=== PATIENT | female | born 1990 | race Caucasian/White ===

== ENCOUNTER 2016-08-08 23:23 | Emergency (ER) | payer MEDICAID ==
[~2016-08-08] VITALS: Ht 167.6 cm; Wt 64.6 kg
[2016-08-09 00:50] LABS: ASPARTATE AMINO TRANSFERASE 10 U/L (15-37); BLOOD UREA NITROGEN 12 mg/dL (7-18)
[2016-08-09 01:43] VITALS: BP 105/68
== END 2016-08-09 02:01 | disposition home or self-care (01) ==
LOC: ED 23:59
DX: O20.0 Threatened abortion (principal)
CPT/HCPCS: 36415; 76801; 80053; 81003; 84702; 85025; 86901

== ENCOUNTER 2016-08-24 01:44 | Emergency (ER) | payer MEDICAID ==
[~2016-08-24] VITALS: Ht 167.6 cm; Wt 64.5 kg
[2016-08-24] MEDS ORDERED: ONDANSETRON 2MG/ML, 2ML ONE (02:47)
[2016-08-24] MEDS ORDERED: SODIUM CHLORIDE 0.9% 1,000ML IVBOLUS ONE ×2 (03:00)
[2016-08-24] MEDS ORDERED: ONDANSETRON 2MG/ML, 2ML IVPush ONE (03:00)
[2016-08-24 03:05] LABS: BLOOD UREA NITROGEN 12 mg/dL (7-18)
[2016-08-24 03:09] LABS: ASPARTATE AMINO TRANSFERASE 9 U/L (15-37)
[2016-08-24 04:53] VITALS: BP 102/54
== END 2016-08-24 05:11 | disposition home or self-care (01) ==
LOC: ED 02:44
DX: O26.891 Other specified pregnancy related conditions, first trimester (principal); R11.0 Nausea
CPT/HCPCS: 36415; 76801; 80053; 81003; 83690; 85025; 96361; 96374; 99285; J2405; J7030

== ENCOUNTER 2018-02-20 19:26 | Outpatient (CLI) | payer OTHER ==
[~2018-02-20] VITALS: Ht 167.6 cm; Wt 75.0 kg
[~2018-02-20 19:26] MED LIST: PREN1TAB10 PO
[2018-02-20 20:53] LABS: AMPHETAMINE SCREEN, URINE Negative (Negative); BARBITURATE SCREEN, URINE Negative (Negative); BENZODIAZEPINE SCREEN, URINE Negative (Negative); CANNABINOID SCREEN, URINE Positive (Negative); COCAINE SCREEN, URINE Negative (Negative); METHADONE SCREEN, URINE Negative (Negative); OPIATE SCREEN, URINE Negative (Negative)
== END 2018-02-20 21:35 | disposition home or self-care (01) ==
LOC: LDOP 19:26
PROVIDERS: ATTEND Obstetrics & Gynecology
DX: O62.9 Abnormality of forces of labor, unspecified (principal); Z3A.36 36 weeks gestation of pregnancy
CPT/HCPCS: 59025; 80307; 99211; G0463

== ENCOUNTER 2018-02-22 17:49 | Outpatient (CLI) | payer OTHER | END 2018-02-22 19:05 | disposition home or self-care (01) | LOC: LDOP 17:49 | PROVIDERS: ATTEND Obstetrics & Gynecology | DX: O42.913 Preterm premature rupture of membranes, unspecified as to length of time between rupture and onset of labor, third trimester (principal); Z3A.36 36 weeks gestation of pregnancy | CPT/HCPCS: 59025; 89060; 99211; G0463; Q0114 ==

== ENCOUNTER 2018-02-27 21:05 | Outpatient (CLI) | payer OTHER ==
[2018-02-27 21:45] VITALS: BP 110/70
[2018-02-27 22:07] LABS: AMPHETAMINE SCREEN, URINE Negative (Negative); BARBITURATE SCREEN, URINE Negative (Negative); BENZODIAZEPINE SCREEN, URINE Negative (Negative); CANNABINOID SCREEN, URINE Positive (Negative); COCAINE SCREEN, URINE Negative (Negative); METHADONE SCREEN, URINE Negative (Negative); OPIATE SCREEN, URINE Positive (Negative)
[2018-02-27 22:18] LABS: MICROSCOPIC INDICATED
== END 2018-02-27 23:10 | disposition home or self-care (01) ==
LOC: LDOP 21:05
PROVIDERS: ATTEND Obstetrics & Gynecology
DX: O26.893 Other specified pregnancy related conditions, third trimester (principal); Z3A.37 37 weeks gestation of pregnancy; R10.9 Unspecified abdominal pain
CPT/HCPCS: 59025; 80307; 81001; 87086; 99211; G0463

== ENCOUNTER 2019-03-03 17:56 | Emergency (ER) | payer MEDICAID, OTHER ==
[~2019-03-03] VITALS: Ht 167.6 cm; Wt 70.4 kg
[~2019-03-03 17:56] MED LIST changes: +FERR325T18 PO; +IBUP-1222 PO; +OXYC-302 PO; +SENN1TAB35 PO
[2019-03-03 17:58] VITALS: BP 110/48
== END 2019-03-03 18:31 | disposition home or self-care (01) ==
LOC: ED 18:18
DX: S61.531A Puncture wound without foreign body of right wrist, initial encounter (principal); F17.200 Nicotine dependence, unspecified, uncomplicated; X58.XXXA Exposure to other specified factors, initial encounter; Y93.89 Activity, other specified; Y92.511 Restaurant or cafe as the place of occurrence of the external cause; Y99.8 Other external cause status
CPT/HCPCS: 99281; 99282